=== PATIENT | female | born 2000 | race African-American/Black ===

== ENCOUNTER 2019-06-22 21:32 | Emergency (ER) | payer SELFPAY ==
[2019-06-22 21:49] VITALS: BP 136/79; PULSE 77; TEMP 98.6; BMI 23.5
[2019-06-22 22:53] LABS: EPI CELLS 8.2 /HPF (0-5/HPF); HYALINE CASTS 2 /lpf (0-8); PH,URINE 7.5 (5.0-8.0); URINE APPEARANCE TURBID; URINE BACTERIA 1597.7 /hpf (NEGATIVE); URINE BILIRUBIN NEGATIVE (NEGATIVE); URINE COLOR YELLOW; URINE GLUCOSE (UA) NEGATIVE (NEGATIVE); URINE KETONE NEGATIVE (NEGATIVE); URINE LEUK ESTERASE 2+ (NEGATIVE); URINE NITRITE POSITIVE (NEGATIVE); URINE PROTEIN NEGATIVE (NEGATIVE); URINE RBC 1 /hpf (0-4); URINE WBC 32 /hpf (0-5)
[2019-06-22] MEDS ORDERED: SODIUM CHLORIDE 0.9% 500 ML INFUS.BAG IV ONE (22:53)
[2019-06-22] MEDS ORDERED: SULFAMETHOXAZOLE/TRIMETHOPRIM 800MG/160MG D.S. TABLET PO ONE (22:56)
--- NOTE | 2019-06-22 22:59 | PDOC ---
Attending Attestation - Resident Resident Name: Bill Scott - ED Attending Attestation I have performed the following: I have examined & evaluated the patient, The case was reviewed & discussed with the resident, I agree w/resident's findings & plan - HPI HPI: 06/22/19 22:58 Pt comes with on off dysuria and some flank pain. - Physicial Exam PE: 06/22/19 22:58 Normal exam. No flank pain elicited with palpation. No suprapubic pain. She has no fever and no chills Clear lungs and heart. No fever No rashes Neuro intact. - Medical Decision Making 06/22/19 22:59 Stable to go home with bactrim BID
--- NOTE | 2019-06-22 23:01 | PDOC ---
History of Present Illness <Fausto Boyce - Last Filed: 06/22/19 23:01> - General History Source: Patient - History of Present Illness Initial Comments: 19 y/o F, no pmh presents to the ED c/o of sharp abdominal pain, rated 8/10, of one day duration that has worsened since onset, radiating to the flank. as per pt, she recently moved from [place] and has not seen a physician, has not updated vaccination or gotten any tests done. Pt denies f/c/n/v/d, hematuria, dysuria, pyuria. 06/22/19 23:06 Associated Symptoms: reports: denies symptoms. denies: chest pain, cough, diaphoresis, fever/chills, nausea/vomiting, shortness of breath, weakness <Bill Scott - Last Filed: 06/23/19 06:28> - General Chief Complaint: Pain Stated Complaint: ABD PAIN Time Seen by Provider: 06/22/19 22:48 Past History <Fausto Boyce - Last Filed: 06/22/19 23:01> - Travel Traveled outside of the country in the last 30 days: No Close contact w/someone who was outside of country & ill: No - Past Medical History COPD: No - Psycho Social/Smoking Cessation Hx Smoking History: Never smoked <Bill Scott - Last Filed: 06/23/19 06:28> - Past Medical History Allergies/Adverse Reactions: Allergies Allergy/AdvReac Type Severity Reaction Status Date / Time No Known Allergies Allergy Verified 06/22/19 21:49 Home Medications: Ambulatory Orders Sulfamethoxazole/Trimethoprim [Bactrim Ds -] 1 tab PO BID #14 tablet 06/22/19 Review of Systems - Review of Systems Able to Perform ROS?: Yes Is the patient limited Wolof proficient: No Constitutional: Yes: Symptoms Reported, Weight Stable. No: Chills, Diaphoresis , Fever HEENTM: Yes: Symptoms Reported. No: Blurred Vision, Throat Pain Respiratory: Yes: Symptoms reported. No: Cough, Orthopnea, Shortness of Breath , Wheezing Cardiac (ROS): Yes: Symptoms Reported. No: Chest Pain, Palpitations ABD/GI: Yes: Symptoms Reported. No: Abdominal Distended, Constipated, Diarrhea , Nausea, Vomiting (suprapubic abdominal pain, radiating to the flank ) Neurological: No: Headache, Numbness <Bill Scott - Last Filed: 06/23/19 06:28> *Physical Exam - Vital Signs Last Vital Signs Temp Pulse Resp BP Pulse Ox 98.6 F 77 19 136/79 100 06/22/19 21:44 06/22/19 21:44 06/22/19 21:44 06/22/19 21:44 06/22/19 21:44 <Fausto Boyce - Last Filed: 06/22/19 23:01> - Vital Signs Last Vital Signs Temp Pulse Resp BP Pulse Ox 98.6 F 77 19 136/79 100 06/22/19 21:44 06/22/19 21:44 06/22/19 21:44 06/22/19 21:44 06/22/19 21:44 - Physical Exam General Appearance: Yes: Nourished, Appropriately Dressed. No: Apparent Distress HEENT: positive: EOMI, CAITLIN, Normal ENT Inspection, Pharynx Normal Neck: positive: Trachea midline, Normal Thyroid, Supple Respiratory/Chest: positive: Lungs Clear, Normal Breath Sounds Cardiovascular: positive: Regular Rhythm, Regular Rate, S1, S2. negative: Murmur, Gallop/S3, Gallop/S4 Vascular Pulses: Dorsalis-Pedis (R): 2+, Doralis-Pedis (L): 2+ Gastrointestinal/Abdominal: positive: Normal Bowel Sounds, Tender (suprapubic tenderness, flank tenderness), Soft Neurologic: positive: Fully Oriented, Alert, Normal Mood/Affect <TylerBill - Last Filed: 06/23/19 06:28> ED Treatment Course - ADDITIONAL ORDERS Additional order review: Laboratory Results 06/22/19 06/22/19 22:35 22:35 Urine Color Yellow Urine Appearance Turbid Urine pH 7.5 Ur Specific [place] 1.020 Urine Protein Negative Urine Glucose (UA) Negative Urine Ketones Negative Urine Blood Negative Urine Nitrite Positive H Urine Bilirubin Negative Urine Urobilinogen 1.0 Ur Leukocyte Esterase 2+ H Urine WBC (Auto) 32 Urine RBC (Auto) 1 Urine Casts (Auto) 2 U Epithel Cells (Auto) 8.2 Urine Bacteria (Auto) 1597.7 Urine HCG, Qual Negative <Fausto Boyce - Last Filed: 06/22/19 23:01> - ADDITIONAL ORDERS Additional order review: Laboratory Results 06/22/19 06/22/19 22:35 22:35 Urine Color Yellow Urine Appearance Turbid Urine pH 7.5 Ur Specific [place] 1.020 Urine Protein Negative Urine Glucose (UA) Negative Urine Ketones Negative Urine Blood Negative Urine Nitrite Positive H Urine Bilirubin Negative Urine Urobilinogen 1.0 Ur Leukocyte Esterase 2+ H Urine WBC (Auto) 32 Urine RBC (Auto) 1 Urine Casts (Auto) 2 U Epithel Cells (Auto) 8.2 Urine Bacteria (Auto) 1597.7 Urine HCG, Qual Negative <Bill Scott - Last Filed: 06/23/19 06:28> Medical Decision Making - Medical Decision Making 19 y/o F, no pmh presents to the ED c/o of sharp abdominal pain, rated 8/10, of one day duration that has worsened since onset, radiating to the flank #Suprapubic pain 2/2 to UTI UA positive for UTI UCx sent Bactrim started Pt to be discharged home on bactrim BID 06/22/19 23:10 06/22/19 23:11 06/22/19 23:11 <Bill Scott - Last Filed: 06/23/19 06:28> Discharge - Discharge Information Problems reviewed: Yes - Admission No <Fausto Boyce - Last Filed: 06/22/19 23:01> <Bill Scott - Last Filed: 06/23/19 06:28> - Discharge Information Clinical Impression/Diagnosis: UTI (urinary tract infection) Qualifiers: Urinary tract infection type: site unspecified Hematuria presence: without hematuria Qualified Code(s): N39.0 - Urinary tract infection, site not specified Condition: Stable Disposition: HOME - Additional Discharge Information Prescriptions: Sulfamethoxazole/Trimethoprim [Bactrim Ds -] 1 tab PO BID #14 tablet - Follow up/Referral Referrals: [facility] [Provider Group] - Patient Discharge Instructions Patient Printed Discharge Instructions: DI for Urinary Tract Infection (UTI) Additional Instructions: 1) Please follow-up with your primary care doctor in the next 2-3 days. Please call tomorrow to schedule a follow up appointment. If you cannot follow up with your doctor within 1 week please return to the Emergency Department for any urgent issues. 2) Your laboratory results show that you have a urinary tract infection here in the ER. 3) If you have any worsening of symptoms or any other concerns, please return to the ER immediately. Return if worsening symptoms including fevers, headache, vomiting, visual or hearing disturbances, abdominal pain, chest pain, shortness of breath, syncope, dehydration, inability to take things by mouth/vomiting, altered mental status, or worsening concerning symptoms. 4) Please continue taking your home medications as directed. Your medications on discharge include Bactrim. Side effects may include upset stomach, abdominal pain, vomiting, or diarrhea. Do not drink alcohol with your medications. - Post Discharge Activity Work/Back to School Note: Back to Work
[2019-06-22] MEDS ORDERED: SULFAMETHOXAZOLE/TRIMETHOPRIM 800MG/160MG D.S. TABLET ONE (23:09)
== END 2019-06-22 23:20 | disposition home or self-care (01) ==
LOC: JER 21:32
DX: N39.0 Urinary tract infection, site not specified (principal)
CPT/HCPCS: 81003; 84703; 87077; 87086; 99282-25